=== PATIENT | female | born 1950 | race Caucasian/White ===

== ENCOUNTER 2016-06-23 15:52 | Observation (INO) | payer OTHER ==
[2016-06-24] MEDS ORDERED: SPIRIVA18 MCG IH (15:58)
[2016-06-24] MEDS ORDERED: ADVAIR HFA 230-28 GM IH (15:58)
[2016-06-24] MEDS ORDERED: VENTOLIN HFA8 GM IH (15:59)
[2016-06-24] MEDS ORDERED: PAXIL40 MG PO (15:59)
[2016-06-24] MEDS ORDERED: HYCET 7.5 MG-3473 ML PO (16:00)
[2016-06-24] MEDS ORDERED: LEVAQUIN500 MG PO (16:00)
[2016-06-24] MEDS ORDERED: TAMIFLU75 MG PO (16:00)
[2016-06-24] MEDS ORDERED: PREDNISONE5 MG PO (16:02)
== END 2016-06-24 15:55 | disposition home or self-care (01) ==
LOC: ER 15:52 → MED 17:49
PROVIDERS: ADMIT Internal Medicine
DX: J09.X2 Influenza due to identified novel influenza A virus with other respiratory manifestations (principal); J44.9 Chronic obstructive pulmonary disease, unspecified; Z99.81 Dependence on supplemental oxygen; M62.9 Disorder of muscle, unspecified; F17.210 Nicotine dependence, cigarettes, uncomplicated; Z98.51 Tubal ligation status; Z79.899 Other long term (current) drug therapy; Z80.0 Family history of malignant neoplasm of digestive organs; Z82.49 Family history of ischemic heart disease and other diseases of the circulatory system
CPT/HCPCS: 36415; 87502; 94640; 96361; 96365; 96375; 96376; G0378; J0456; J0696